=== PATIENT | female | born 1960 | race Caucasian/White ===

== ENCOUNTER 2021-03-10 08:02 | Emergency (ER) | payer MEDICARE, MEDICAID ==
[~2021-03-10] VITALS: Ht 175.3 cm; Wt 106.8 kg
[2021-03-10] MEDS ORDERED: LORazepam 2 mg/ml vial IV ONE (08:20)
[2021-03-10] MEDS ORDERED: metoprolol tartrate 1mg/ml inj IV ONE (08:20)
[2021-03-10] MEDS ORDERED: LORA-269 PO (08:22)
[2021-03-10] MEDS ORDERED: APIX5TAB3 PO (08:23)
[2021-03-10] MEDS ORDERED: ATEN-169 PO (08:24)
[2021-03-10 09:10] VITALS: BP 139/80
== END 2021-03-10 09:37 | disposition home or self-care (01) ==
LOC: ER 08:03
DX: F41.0 Panic disorder [episodic paroxysmal anxiety] (principal); I10 Essential (primary) hypertension; E78.5 Hyperlipidemia, unspecified; E11.9 Type 2 diabetes mellitus without complications; Z98.890 Other specified postprocedural states; Z79.899 Other long term (current) drug therapy
CPT/HCPCS: 96374; 96375; 99284; J2060; J3490

== ENCOUNTER 2022-01-29 07:16 | Emergency (ER) | payer MEDICARE, MEDICAID ==
[~2022-01-29] VITALS: Ht 172.7 cm; Wt 80.0 kg
[~2022-01-29 07:16] MED LIST: APIX5TAB3 PO; LORA-269 PO
[2022-01-29] MEDS ORDERED: meclizine 12.5mg tablet PO ONE ×2 (07:45→09:05)
[2022-01-29 08:19] VITALS: BP 156/71
[2022-01-29 08:19] LABS: ALANINE AMINOTRANSFERASE 27 U/L (12-78); ALBUMIN 3.8 G/DL (3.4-5.0); ALBUMIN/GLOBULIN RATIO 1.1 (1.1-1.5); ALKALINE PHOSPHATASE 58 IU/L (46-116); ANION GAP 3 (8-16); ASPARTATE AMINO TRANSFERASE 21 U/L (10-37); BILIRUBIN,TOTAL 0.5 MG/DL (0.1-1.0); BLOOD UREA NITROGEN 7 MG/DL (7-18); BUN/CREATININE RATIO 8.6 (6.6-38.0); CALCIUM 8.8 MG/DL (8.5-10.1); CHLORIDE 103 MMOL/L (99-107); CREATININE 0.81 MG/DL (0.40-0.90); GLUCOSE 159 MG/DL (70-104); POTASSIUM 3.2 MMOL/L (3.5-5.1); SODIUM 129 MMOL/L (135-145); TOTAL CARBON DIOXIDE 23.2 MMOL/L (24-32); TOTAL PROTEIN 7.3 G/DL (6.4-8.2); eGFR 72 ML/MIN
[2022-01-29 08:22] LABS: BASOPHILS # (AUTO) 0.2 X10'3 (0-0.2); BASOPHILS % (AUTO) 1.4 % (0-1); EOSINOPHILS # (AUTO) 0.1 X10'3 (0-0.9); EOSINOPHILS % (AUTO) 0.4 % (0-6); HEMATOCRIT 43.9 % (35.0-45.0); LYMPHOCYTES # (AUTO) 2.6 X10'3 (1.1-4.8); LYMPHOCYTES % (AUTO) 18.6 % (21-51); MEAN CORPUSCULAR HEMOGLOBIN 27.4 PG (27.0-31.0); MEAN CORPUSCULAR VOLUME 85.7 FL (78-98); MEAN PLATELET VOLUME 9.5 FL (7.4-10.4); NEUTROPHILS # (AUTO) 10.2 X10'3 (1.8-7.7); NEUTROPHILS % (AUTO) 72.6 % (42-75); PLATELET COUNT 296 X10'3 (140-440); RED BLOOD COUNT 5.12 X10'6 (4.20-5.60); RED CELL DISTRIBUTION WIDTH 14.5 % (11.5-14.5)
[2022-01-29] MEDS ORDERED: MECL-226 PO ×3 (09:33→09:41)
== END 2022-01-29 09:52 | disposition home or self-care (01) ==
LOC: ER 07:16
DX: R07.9 Chest pain, unspecified (principal); R42 Dizziness and giddiness; Z88.5 Allergy status to narcotic agent; Z88.0 Allergy status to penicillin; Z88.1 Allergy status to other antibiotic agents; Z88.8 Allergy status to other drugs, medicaments and biological substances; Z79.899 Other long term (current) drug therapy
CPT/HCPCS: 36415; 71045; 80053; 83880; 84484; 85025; 93005; 99285; J8597

== ENCOUNTER 2022-03-19 07:14 | Emergency (ER) | payer MEDICARE, MEDICAID ==
[~2022-03-19] VITALS: Ht 175.3 cm; Wt 99.5 kg
[~2022-03-19 07:14] MED LIST changes: +MECL-226 PO
[2022-03-19 08:44] LABS: BASOPHILS # (AUTO) 0.1 X10'3 (0-0.2); BASOPHILS % (AUTO) 0.8 % (0-1); EOSINOPHILS % (AUTO) 0.1 % (0-6); HEMATOCRIT 48.9 % (35.0-45.0); HEMOGLOBIN 16.1 g/dl (12.0-16.0); LYMPHOCYTES # (AUTO) 1.8 X10'3 (1.1-4.8); LYMPHOCYTES % (AUTO) 26.5 % (21-51); MEAN CORPUSCULAR HEMOGLOBIN 27.7 PG (27.0-31.0); MEAN PLATELET VOLUME 9.7 FL (7.4-10.4); MONOCYTES % (AUTO) 13.9 % (2-12); NEUTROPHILS % (AUTO) 58.7 % (42-75); PLATELET COUNT 215 X10'3 (140-440); RED BLOOD COUNT 5.82 X10'6 (4.20-5.60); RED CELL DISTRIBUTION WIDTH 14.5 % (11.5-14.5); WHITE BLOOD COUNT 6.9 X10'3 (4.5-11.0)
[2022-03-19 09:03] LABS: ALANINE AMINOTRANSFERASE 186 U/L (12-78); ALBUMIN 3.8 G/DL (3.4-5.0); ALBUMIN/GLOBULIN RATIO 0.9 (1.1-1.5); ALKALINE PHOSPHATASE 60 IU/L (46-116); ANION GAP 15 (8-16); ASPARTATE AMINO TRANSFERASE 169 U/L (10-37); BILIRUBIN,TOTAL 0.3 MG/DL (0.1-1.0); BLOOD UREA NITROGEN 8 MG/DL (7-18); BUN/CREATININE RATIO 9.9 (6.6-38.0); CALCIUM 8.9 MG/DL (8.5-10.1); CHLORIDE 103 MMOL/L (99-107); CREATININE 0.81 MG/DL (0.40-0.90); GLUCOSE 141 MG/DL (70-104); LIPASE 78 U/L (73-393); POTASSIUM 3.2 MMOL/L (3.5-5.1); SODIUM 141 MMOL/L (135-145); TOTAL CARBON DIOXIDE 22.6 MMOL/L (24-32); TOTAL PROTEIN 8.1 G/DL (6.4-8.2); eGFR 72 ML/MIN
[2022-03-19 10:41] LABS: CLARITY,URINE CLOUDY (Clear); COLOR,URINE YELLOW (Yellow); GLUCOSE, URINE NEGATIVE (Neg); KETONES,URINE 15 mg/dl (Neg); LEUKOCYTE ESTERASE ,URINE NEGATIVE (Neg); NITRITES, URINE NEGATIVE (Neg); OCCULT BLOOD,URINE TRACE-INTACT (Neg); PROTEIN,URINE 30 mg/dl (Neg); UROBILINOGEN,URINE 0.2 E.U/dL (0.2-1.0)
[2022-03-19 10:50] LABS: UA COLLECTION TYPE CLN CATCH MIDSTREAM
[2022-03-19 10:51] LABS: URINE HCG POSITIVE (NEG)
[2022-03-19 10:52] LABS: MUCUS STRANDS MANY /LPF (Neg); SQUAMOUS EPITHELIAL CELL,UR MANY /LPF (FEW)
[2022-03-19 10:56] LABS: BACTERIA,URINE 2+ /HPF (Neg)
[2022-03-19 10:57] LABS: RBC,URINE 0-2 /HPF (0-2)
[2022-03-19 12:07] LABS: BETA HCG,QUANTITATIVE 7 mIU/ml
[2022-03-19] MEDS ORDERED: ringers solution, lacted 1,000 ML IV ONE (12:40)
[2022-03-19] MEDS ORDERED: proCHLORperazine 10 MG/2 ml inj IV ONE (12:40)
[2022-03-19] MEDS ORDERED: metoclopramide 5 mg/ml inj IV ONE (12:40)
[2022-03-19] MEDS ORDERED: LORazepam 2 mg/ml vial IV ONE (12:40)
[2022-03-19] MEDS ORDERED: ONDA4TAB12 PO (14:54)
[2022-03-19] MEDS ORDERED: MECL-159 PO (14:55)
[2022-03-19 16:56] VITALS: BP 125/74
[2022-03-19] MEDS ORDERED: dexamethasone 0.5 mg/5ml unit-dose oral solution PO STA (17:27)
[2022-03-19] MEDS ORDERED: BEBTELOVIMAB 175 MG/2 ML VIAL IV ONE (17:30)
[2022-03-19] MEDS ORDERED: dexamethasone sod phosphate 10mg/ml inj PO STA (17:47)
[2022-03-19] MEDS ORDERED: DEXA6TAB6 PO (18:06)
[2022-03-19] MEDS ORDERED: DEC4T PO (18:06)
[2022-03-21 11:03] LABS: HBSAG SCREEN Negative (Negative); HEP A AB, IGM Negative (Negative)
[2022-03-28 12:36] LABS: HEPATITIS C ANTIBODY Negative
== END 2022-03-19 19:15 | disposition home or self-care (01) ==
LOC: ER 07:15
DX: U07.1 COVID-19 (principal); R42 Dizziness and giddiness; J44.9 Chronic obstructive pulmonary disease, unspecified; E11.9 Type 2 diabetes mellitus without complications; Z88.0 Allergy status to penicillin; Z88.1 Allergy status to other antibiotic agents; Z88.5 Allergy status to narcotic agent; Z88.8 Allergy status to other drugs, medicaments and biological substances; Z91.041 Radiographic dye allergy status; Z87.891 Personal history of nicotine dependence
CPT/HCPCS: 36415; 80053; 80074; 81001; 81025; 83690; 84702; 85025; 87635; 96361; 96374; 96375; 99284; C9803; J0780; J1100; J2060; J2765; J7120; M0222; Q0222